=== PATIENT | female | born 1955 | race Caucasian/White ===

== ENCOUNTER → 2024-03-12 15:17 | Outpatient (CLI) | payer OTHER, SELFPAY ==
--- NOTE | 2024-03-12 15:26 | DI.MRI.S_ITS ---
PROCEDURE: MR PELVIS WO/W CON INDICATIONS: pelvic mass TECHNIQUE: Coronal HASTE, sagittal breath-hold T2 FSE; axial T1 FSE with and without fat saturation through the pelvis. Optional long- and short-axis uterine nonbreath-hold T2 FSE through the uterus. Sagittal or axial dynamic VIBE during administration of contrast. Post-contrast axial or coronal VIBE/2-D FLASH with fat saturation from the iliac crests to the symphysis. Optional diffusion weighted imaging and ADC may be performed. COMPARISON: None. FINDINGS: Image quality: Excellent. Uterus: The uterus is normal size and vertically oriented. The fundus is slightly retroflexed due to mass effect. Multiple small hypointense foci in the anterior lower in segment may be residual from prior . No definite myometrial mass. Junctional zone is normal thickness. Endometrium appears normal for the patient's age. Cervix and vaginal canal are within normal limits. Adnexa: There is a bilobed solid mass arising from the left ovary measuring 15.8 x 9.6 by 12.0 cm in maximal diameter. Postcontrast, the mass is hypoenhancing. There are prominent feeding vessels in the left adnexa. The inferior portion of the mass is T2 hypointense, indicating fibrosis. It has compressive mass effect on the dome of the urinary bladder. The right ovary appears to be separate and of normal size for postmenopausal female. Urinary system: There is extrinsic mass effect on the urinary bladder. Given this, the bladder wall is normal. Distal ureters are nondilated. The urethra appears normal in morphology. Nodes and vessels: No pelvic or inguinal adenopathy by size criteria. Iliac vessels are normal in size. Bowel and peritoneum: There is a small amount of free fluid posteriorly in the pelvis. The visible small bowel loops are normal. There is moderate sigmoid diverticulosis. Soft tissues: No inguinal hernias. No findings of pelvic floor incompetence in the absence of provocation. Bones: Marrow demonstrates normal overall signal. IMPRESSION: 15.8 cm bilobed left ovarian mass concerning for malignancy. Differential diagnosis includes a pedunculated uterine fibroid although a discrete connection to the uterus is not well resolved on these images. There is small amount of pelvic ascites. No visible pelvic adenopathy. Dictated by: Vivian Temple M.D. on 03/13/2024 at 14:07 Approved by: Vivian Temple M.D. on 03/13/2024 at 14:29
== END ==
PROVIDERS: Family Provider Family Medicine; PCP Nurse Practitioner Family; Referring Provider Nurse Practitioner Family; Visit Provider Nurse Practitioner Family
DX: N83.9 Noninflammatory disorder of ovary, fallopian tube and broad ligament, unspecified (principal); R19.09 Other intra-abdominal and pelvic swelling, mass and lump
CPT/HCPCS: 72197; A9579